=== PATIENT | male | born 1970 | race Caucasian/White ===

== ENCOUNTER → 2023-09-16 18:09 | Outpatient (REF) | payer BC, SELFPAY | LOC: RCS 18:09 | PROVIDERS: ATTENDING PHYSICIAN Physician Assistant Medical; FAMILY PHYSICIAN Family Medicine | DX: R07.9 Chest pain, unspecified (principal); R06.09 Other forms of dyspnea; I25.10 Atherosclerotic heart disease of native coronary artery without angina pectoris | CPT/HCPCS: 93306 ==